=== PATIENT | female | born 1970 | race Caucasian/White ===

== ENCOUNTER 2024-06-08 05:29 | Emergency (ER) | payer OTHER ==
[2024-06-08] MEDS ORDERED: TRAMADOL HCL 50 MG TAB ONE (05:50)
[2024-06-08] MEDS ORDERED: GABAPENTIN 300 MG CAP ONE (05:50)
--- NOTE | 2024-06-08 06:33 | ER ---
Nurse's Notes [facility] Name: Donna Diaz Age: 54 yrs Sex: Female : 1970 Arrival Date: 06/08/2024 Time: 05:29 Bed 5 Private MD: Diagnosis: Radiculopathy, lumbosacral region Presentation: 06/08 05:51 Chief complaint: Patient states: for two weeks I have been having this hip pain that bm8 radiates down my leg. Coronavirus screen: At this time, the client does not indicate any symptoms associated with coronavirus-19. Ebola Screen: Patient negative for fever greater than or equal to 101.5 degrees Fahrenheit, and additional compatible Ebola Virus Disease symptoms Patient denies exposure to infectious person. Patient denies travel to an Ebola-affected area in the 21 days before illness onset. No symptoms or risks identified at this time. Initial Sepsis Screen: Does the patient meet any 2 criteria? HR > 90 bpm. No. Patient's initial sepsis screen is negative. Does the patient have a suspected source of infection? No. Patient's initial sepsis screen is negative. Risk Assessment: Do you want to hurt yourself or someone else? Patient reports no desire to harm self or others. Onset of symptoms was May 25, 2024. 05:51 Method Of Arrival: Ambulatory bm8 05:51 Acuity: ARCHIE 3 bm8 Triage Assessment: 05:53 General: Appears in no apparent distress. uncomfortable, Behavior is calm, cooperative, bm8 appropriate for age. Pain: Complains of pain in left leg Pain radiates to left leg Pain currently is 9 out of 10 on a pain scale. Quality of pain is described as burning, Pain began gradually. EENT: No deficits noted. No signs and/or symptoms were reported regarding the EENT system. Neuro: No deficits noted. Level of Consciousness is awake, alert, obeys commands, Oriented to person, place, time, situation, Appropriate for age. Cardiovascular: Denies chest pain, Capillary refill < 3 seconds in bilateral fingers Patient's skin is warm and dry. Respiratory: Airway is patent Trachea midline Respiratory effort is even, unlabored, Respiratory pattern is regular, symmetrical. GI: No signs and/or symptoms were reported involving the gastrointestinal system. : No signs and/or symptoms were reported regarding the genitourinary system. Derm: No signs and/or symptoms reported regarding the dermatologic system. Musculoskeletal: Circulation, motion, and sensation intact. Range of motion: intact in all extremities, Reports pain in left leg since 2 weeks ago. 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 - Infectious Disease History:: Denies. - Family history:: not pertinent. - Social history:: Smoking status: Patient denies any tobacco usage or history of. - Hospitalizations: : No recent hospitalization is reported. Screenin:58 [facility] ED Fall Risk Assessment (Adult) History of falling in the last 3 months, bm8 including since admission No falls in past 3 months (0 pts) Confusion or Disorientation No (0 pts) Intoxicated or Sedated No (0 pts) Impaired Gait No (0 pts) Mobility Assist Device Used No (0 pt) Altered Elimination No (0 pt) Score/Fall Risk Level 0 - 2 = Low Risk Oriented to surroundings, Maintained a safe environment, Educated pt \T\ family on fall prevention, incl call for assistance when getting out of bed, Assessed \T\ reinforced patient's understanding of fall precautions, Hourly rounding (assess needs \T\ fall precautionary measures) done, Used ambulatory aids as needed (educated on \T\ assisted with), Used gait belt as appropriate. Abuse screen: Denies threats or abuse. Nutritional screening: No deficits noted. Tuberculosis screening: No symptoms or risk factors identified. Assessment: 06:53 Reassessment: Patient appears in no apparent distress at this time. Patient and/or bm8 family updated on plan of care and expected duration. Pain level reassessed. Patient is alert, oriented x 3, equal unlabored respirations, skin warm/dry/pink. Patient states feeling better. Patient states symptoms have improved. Neuro: No deficits noted. Level of Consciousness is awake, alert, obeys commands, Oriented to person, place, time, situation, Appropriate for age. Vital Signs: 05:51 BP 149 / 102; Pulse 97; Resp 18; Temp 97; Pulse Ox 96% ; Weight 77.11 kg; Height 5 ft. bm8 8 in. ; Pain 9/10; 06:00 BP 147 / 97; Pulse 89; Resp 18; Temp 97; Pulse Ox 96% ; Pain 9/10; bm8 06:53 BP 157 / 101; Pulse 84; Resp 17; Temp 97; Pulse Ox 98% ; Pain 6/10; bm8 05:51 Body Mass Index 25.85 (77.11 kg, 172.72 cm) bm8 05:51 Pain Scale: Adult bm8 06:00 Pain Scale: Adult bm8 06:53 Pain Scale: Adult bm8 [place] Coma Score: 06:00 Eye Response: spontaneous(4). Motor Response: obeys commands(6). Verbal Response: bm8 oriented(5). Total: 15. ED Course: 05:39 Patient arrived in ED. gm2 05:41 Manoj Rivera MD is Attending Physician. rn 05:51 Devon Connors RN is Primary Nurse. bm8 05:53 Triage completed. bm8 05:53 Arm band placed on right wrist. bm8 05:58 Patient has correct armband on for positive identification. Placed in gown. Bed in low bm8 position. Call light in reach. Adult w/ patient. Client placed on continuous cardiac and pulse oximetry monitoring. NIBP monitoring applied. Pulse ox on. NIBP on. Door closed. Noise minimized. Pillow given. Verbal reassurance given. Head of bed elevated. 05:58 No provider procedures requiring assistance completed. Patient did not have IV access bm8 during this emergency room visit. 06:23 Extremity Venous [facility] [employer] US In Process Unspecified. EDMS 06:23 Lower Extremity Artery [facility] US In Process Unspecified. EDMS 06:53 Provided Education on: post er care. bm8 Administered Medications: 05:55 Drug: Gabapentin PO 300 mg PO once Route: PO; lg3 06:55 Follow up: Response: No adverse reaction bm8 05:55 Drug: traMADol PO 50 mg PO once Route: PO; lg3 06:55 Follow up: Response: No adverse reaction bm8 06:50 Drug: Ketorolac IM 30 mg IM once Route: IM; Site: right deltoid; lg3 06:55 Follow up: Response: No adverse reaction bm8 Medication: 05:58 VIS not applicable for this client. bm8 Outcome: 06:32 Discharge ordered by . rn 06:55 Discharged to home ambulatory, bm8 06:55 Condition: stable 06:55 Discharge instructions given to patient, family, Instructed on discharge instructions, follow up and referral plans. medication usage, safety practices, Demonstrated understanding of instructions, follow-up care, medications, Prescriptions given X 2, 06:56 Patient left the ED. bm8 Signatures: Dispatcher [employer] EDMS Manoj Rivera MD MD rn Able, Lacie, RN RN lg3 Isis Sheehan 2 Devon Connors RN RN bm8
--- NOTE | 2024-06-08 06:33 | EDPHYS ---
Physician Documentation [facility] Name: Donna Diaz Age: 54 yrs Sex: Female : 1970 Arrival Date: 06/08/2024 Time: 05: Bed 5 Private MD: ED Physician Manoj Rivera HPI: 06/08 05:49 This 54 yrs old Female presents to ER via Unassigned with complaints of Leg Pain, Back rn Pain. 05:49 The patient presents with pain. The complaints affect the left quadriceps, left knee rn and left palma. 05:49 Onset: The symptoms/episode began/occurred 1 week(s) ago. Modifying factors: The rn symptoms are alleviated by nothing. the symptoms are aggravated by movement. Severity of symptoms: At their worst the symptoms were moderate, in the emergency department the symptoms are unchanged. The patient has not experienced similar symptoms in the past. Patient reports pain that begins just above left buttocks/low back, radiates around to left inner thigh and down to calf muscle. No trauma. Just recently went on a cruise and was sitting on a chair for long periods of time. No skin discoloration or rashes. No fever or chills. No fall. Has never had a DVT or PE.. 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 - Infectious Disease History:: Denies. - Family history:: not pertinent. - Social history:: Smoking status: Patient denies any tobacco usage or history of. - Hospitalizations: : No recent hospitalization is reported. ROS: 05:49 Constitutional: Negative for fever, chills, and weight loss, Abdomen/GI: Negative for rn abdominal pain Back: Positive for left lower back pain MS/Extremity: Positive for pain to the left lower extremity Skin: No rash or discoloration Neuro: Positive for tingling to the left lower extremity Exam: 05:49 Constitutional: This is a well developed, well nourished patient who is awake, alert, rn and in no acute distress. Ambulatory to room without difficulty or assistance Cardiovascular: Regular rate and rhythm. No pulse deficits. Respiratory: Speaking full sentences, unlabored. No increased work of breathing, no retractions or nasal flaring. Back: No midline spinal tenderness. MS/ Extremity: Pulses equal, no cyanosis. Neurovascular intact. Full, normal range of motion. Equal circumference. Neuro: Awake and alert, GCS 15, sensory and strength normal in bilateral lower extremities with normal patellar reflexes. Vital Signs: 05:51 BP 149 / 102; Pulse 97; Resp 18; Temp 97; Pulse Ox 96% ; Weight 77.11 kg; Height 5 ft. bm8 8 in. ; Pain 9/10; 06:00 BP 147 / 97; Pulse 89; Resp 18; Temp 97; Pulse Ox 96% ; Pain 9/10; bm8 06:53 BP 157 / 101; Pulse 84; Resp 17; Temp 97; Pulse Ox 98% ; Pain 6/10; bm8 05:51 Body Mass Index 25.85 (77.11 kg, 172.72 cm) bm8 05:51 Pain Scale: Adult bm8 06:00 Pain Scale: Adult bm8 06:53 Pain Scale: Adult bm8 [place] Coma Score: 06:00 Eye Response: spontaneous(4). Motor Response: obeys commands(6). Verbal Response: bm8 oriented(5). Total: 15. MDM: 05:41 Medical Screening Exam initiated rn 06:31 Differential diagnosis: Radiculopathy, neuropathy, DVT, peripheral vascular disease, rn arthritis. Data reviewed: vital signs, nurses notes, radiologic studies, ultrasound, and as a result, I will discharge patient. Counseling: I had a detailed discussion with the patient and/or guardian regarding the historical points, exam findings, and any diagnostic results supporting the discharge/admit diagnosis, radiology results, the need for outpatient follow up, to return to the emergency department if symptoms worsen or persist or if there are any questions or concerns that arise at home. Response to treatment: the patient's symptoms have mildly improved after treatment, and as a result, I will discharge patient. Special discussion: I discussed with the patient/guardian in detail that at this point there is no indication for admission to the hospital. It is understood, however, that if the symptoms persist or worsen the patient needs to return immediately for re-evaluation. Further emergent ED testing is not indicated at this point in time. I discussed with the patient/guardian in detail the need to arrange with the PCP or specialist further outpatient testing, MRI. 06/08 05:48 Order name: Extremity Venous [employer] US rn 06/08 05:48 Order name: Lower Extremity Artery [employer] US rn Administered Medications: 05:55 Drug: Gabapentin PO 300 mg PO once Route: PO; lg3 06:55 Follow up: Response: No adverse reaction bm8 05:55 Drug: traMADol PO 50 mg PO once Route: PO; lg3 06:55 Follow up: Response: No adverse reaction bm8 06:50 Drug: Ketorolac IM 30 mg IM once Route: IM; Site: right deltoid; lg3 06:55 Follow up: Response: No adverse reaction bm8 Disposition Summary: 06/08/24 06:32 Discharge Ordered Notes: Location: Home rn Problem: new rn Symptoms: have improved rn Condition: Stable rn Diagnosis - Radiculopathy, lumbosacral region rn Followup: rn - With: Private Physician - When: As needed - Reason: Recheck today's complaints, Re-evaluation by your physician Discharge Instructions: - Discharge Summary Sheet rn - Lumbosacral Radiculopathy rn Forms: - Medication Reconciliation Form rn - Antibiotic regulatory affairs internship - Prescription Opioid Use rn - Patient Portal Instructions rn - Leadership Thank You Letter rn Prescriptions: - gabapentin 100 mg Oral capsule - take 1 capsule ORAL route every 12 hours As needed; 20 capsule; Refills: 0, rn Product Selection Permitted - Tramadol 50 mg Oral Tablet - take 1 tablet ORAL route every 8 hours as needed; 12 tablet; Refills: 0, rn Product Selection Permitted Signatures: Dispatcher [employer] EDMS Manoj Rivera MD MD rn Able, Lacie, RN RN lg3 Devon Connors RN RN bm8 Corrections: (The following items were deleted from the chart) 05:49 05:49 Lower Extremity Artery [employer][email or web address] ordered. EDMS EDMS
[2024-06-08] MEDS ORDERED: KETOROLAC 30 MG/ML INJ ONE (06:36)
--- NOTE | 2024-06-08 07:39 | RAD REPORT ---
EXAMINATION: US LOWER EXTREMITY ARTERIES LIMITED FOLLOW-UP UNILATERAL INDICATION: Female, 54 years old, PAIN COMPARISON(S): None. TECHNIQUE: Sonographic imaging of the left lower extremity. FINDINGS: LEFT Maximal velocities (cm/s): Common femoral: 59 Deep femoral: Not assessed Superficial femoral: 75 Popliteal: 50 Posterior tibial: 64 Dorsalis pedis: 66 Waveforms: Normal, triphasic. Other findings: None. IMPRESSION: No hemodynamically critical stenosis in the imaged left lower extremity. Electronically signed by: Lamin Hemphill MD 06/08/2024 07:04 AM CDT RP Due to temporary technical issues with the PACS/[employer] reporting system, reports are being signed by the in-house radiologist without review as a courtesy to ensure prompt reporting the interpreting radiologist is fully responsible for the content of the report. Transcribed Date/Time: 06/08/2024 7:39 AM
--- NOTE | 2024-06-08 07:39 | RAD REPORT ---
US EXTREMITY VEINS UNILATERAL INDICATION: Pain COMPARISON(S): None. TECHNIQUE: Grayscale and color/spectral Doppler ultrasound of the left lower extremity veins. FINDINGS: There is normal flow and compressibility in the left common femoral, greater saphenous, femoral, popl iteal and posterior tibial veins. No intraluminal thrombus is visualized. IMPRESSION: No sonographic evidence of deep venous thrombosis in the imaged left lower extremity. Electronically signed by: Kelly Payan MD 06/08/2024 07:03 AM CDT Due to temporary technical issues with the PACS/[employer] reporting system, reports are being signed by the in-house radiologist without review as a courtesy to ensure prompt reporting the interpreting radiologist is fully responsible for the content of the report. Transcribed Date/Time: 06/08/2024 7:39 AM
[2024-06-08 08:52] VITALS: TEMP 97
[2024-06-08 08:54] VITALS: BP 157/101; O2SAT 98
== END 2024-06-08 06:56 | disposition home or self-care (01) ==
LOC: ER 05:29
DX: M54.17 Radiculopathy, lumbosacral region (principal)
CPT/HCPCS: 93926; 93971; 96372; 99284